=== PATIENT | female | born 1990 | race Caucasian/White ===

== ENCOUNTER → 2021-03-03 10:04 | Day surgery (SDC) | payer BC, SELFPAY ==
[2021-03-03 12:12] VITALS: BP 126/74; PULSE 114; RESP 20; TEMP 36.2; O2SAT 96; BMI 37.3
[2021-03-03 12:29] VITALS: BP 126/74; PULSE 114; RESP 20; TEMP 36.2; O2SAT 96
== END ==
PROVIDERS: Family Provider Registered Nurse; Visit Provider Family Medicine
DX: O36.0990 Maternal care for other rhesus isoimmunization, unspecified trimester, not applicable or unspecified (principal); Z3A.00 Weeks of gestation of pregnancy not specified
CPT/HCPCS: 36415; 36430; 86850; 86900; 90384; 96372

== ENCOUNTER 2021-05-14 12:50 | Outpatient (CLI) | payer BC, SELFPAY ==
[2021-05-14] VITALS (8 sets, daily range): BP systolic 105–118; BP diastolic 55–67; PULSE 90–109; RESP 18; TEMP 36–36.3; BMI 40.6
== END 2021-05-14 14:55 | disposition home or self-care (01) ==
LOC: OPOB 12:54 → OBGYN 12:54
PROVIDERS: PCP Family Medicine; Visit Provider Family Medicine
DX: O26.899 Other specified pregnancy related conditions, unspecified trimester (principal); Z3A.00 Weeks of gestation of pregnancy not specified; R10.9 Unspecified abdominal pain
CPT/HCPCS: 59025; 99211

== ENCOUNTER 2021-05-22 10:26 | Inpatient (IN) | payer BC, SELFPAY ==
[2021-05-22] VITALS (58 sets, daily range): BP systolic 88–127; BP diastolic 51–86; PULSE 64–115; RESP 15–18; TEMP 36.2–36.8; O2SAT 96–100; BMI 41.1
--- NOTE | 2021-05-22 10:09 | PM.HP ---
Providers/Chief Complaint Primary Care Provider: Reyes Banegas MD Chief Complaint: FULL TERM , INDUCTION History of Present Illness Rachael Ayala is a 31 year old at 40 weeks gestation by LMP consistent with 9-week ultrasound. Her is complicated by celiac disease, Rh-. The patient presents to L&D secondary to a planned induction of labor for postdates. The patient feels well at this time. She denies any chest pains, cough, shortness of breath, fever, nausea, vomiting, diarrhea, leakage of fluid, vaginal bleeding. Medications/Allergies Home Medications Medication Instructions Recorded Confirmed Last Taken Type no.144-folic acid 1 tab PO DAILY 03/03/21 03/03/21 Unknown History [] Allergies Allergy/AdvReac Type Severity Reaction Status Date / Time No Known Allergies Allergy Verified 08/06/20 15:43 PFSH Acute PFSH: Social History Smoking and tobacco status: never smoked Current occupation: [employer] Physical Exam Narrative: EXAM NARRATIVE: General: Alert and oriented x3 Eyes: Pupils equal round and reactive to light and accommodation Mouth: Mucous membranes moist, pharynx non-erythematous Cardiac: Regular rate and rhythm without murmurs Lungs: Clear to auscultation bilaterally without wheezes, crackles or rhonchi Abdomen: Soft, non-tender, fundus consistent with gestational age Cervix: 3 to 4 cm/50/-3/posterior/vertex Extremities: Trace edema in the bilateral lower extremities A&P Additional A&P Information The patient is doing well at this time. We will proceed with induction of labor. The patient is GBS negative. We will start the patient on IV Pitocin. The patient may have a laboring epidural when requested. All questions were answered. The patient and her are in agreement with the current plan of care. Attestations Medical Necessity Statement*: The patient will be here for greater than 2 midnights due to routine intrapartum and management of labor and delivery. Coding Level of Care Code Acute Manager Marketing Communication for Niya Giang
[2021-05-22] MEDS: dextrose 5%-lactated ringers 1,000 ML 125 ML IV ×2 (11:15→17:15)
[2021-05-22] MEDS: oxytocin 30 UNIT/500 ML BAG IV (11:16)
[2021-05-22 11:41] LABS: Basophils % 0.2 %; Eosinophils # 0.1 10^3/uL (0.0-0.8); Eosinophils % 0.6 %; Hematocrit 32.6 % (37.0-47.0); Hemoglobin 9.9 g/dL (11.5-15.3); Lymphocytes # 1.9 10^3/uL (0.8-4.8); Lymphocytes % 20.3 %; Mean Corpuscular HGB Conc 30.4 g/dL (30.0-36.0); Mean Corpuscular Hemoglobin 22.7 pg (28.0-34.0); Mean Corpuscular Volume 74.8 fl (81-99); Mean Platelet Volume 11.5 fL (7.4-10.4); Monocytes # 0.6 10^3/uL (0.2-0.9); Monocytes % 6.6 %; Neutrophils # 6.84 10^3/uL (1.8-7.7); Neutrophils % 71.5 %; Nucleated Red Blood Cells % 0 %; Platelet Count 243 10^3/cmm (130-400); Red Blood Count 4.36 10^6/uL (4.1-5.3); White Blood Count 9.6 10^3/uL (4.0-10.0)
[2021-05-22] MEDS: lactated ringers 1,000 ML 999 ML IV ×3 (14:36→17:30)
--- NOTE | 2021-05-22 16:07 | P.ANESASSM_ITS ---
Pre-Anesthetic Assessment Pre-Anesthetic Assessment: Height/Weight: Height 1.57 m Weight 102.058 kg Temp Pulse Resp BP Pulse Ox 97.2 F L 92 18 106/61 98 05/22/21 15:37 05/22/21 16:00 05/22/21 10:26 05/22/21 16:00 05/22/21 15:55 Preop Diagnosis: IUP Was Beta Delma taken within 24 hours: N/A Was Clonidine taken within 24 hours: N/A Social: Social History: No alcohol and No tobacco Exam: Pre-Anes Outpt Exam: alert, oriented x 3, clear to auscultation bilaterally and regular rate & rhythm Airway: Submandibular: WNL Cervical ROM: WNL MP: 2 Dentition: Full History/ROS: No significant history except as noted GI: Comments: Celiac dz Metabolic: Metabolic: Morbid obesity Anesthetic Plan: ASA status: 2 Anesthesia: Regional (specify below) (Labor epidural) Risk of > 500 ml blood loss (7ml/kg in children): No Meds/Allergies Current Medications: Current Medications Generic Name Dose Route Start Last Admin Trade Name Freq PRN Reason Stop Dose Admin Dextrose/Lactated Ringer's 1,000 mls @ 125 m ls/hr 05/22/21 10:30 05/22/21 14:36 Dextrose 5%-Lact ated Ringers IV Infused .Q8H GLORIA Infusion Oxytocin 30 unit in 500 ml s @ 1 mls/hr 05/22/21 10:30 05/22/21 14:15 Pitocin IV 20 milliunit/min .Q24H GLORIA 20 mls/hr Titration Protocol 1 MILLIUNIT/MIN Ropivacaine 200 mg in 100 mls @ 13 mls/hr 05/22/21 14:30 05/22/21 15:32 Naropin Premix EPIDURAL 13 mls/hr .Q7H42M GLORIA Administration Lactated Ringer's 1,000 mls @ 999 m ls/hr 05/22/21 14:30 05/22/21 15:32 Lactated Ringers IV 999 mls/hr .Q1H1M PRN Administration See label comment s PFSH Anesthesia PFSH: Social History Smoking and tobacco status: never smoked Current occupation: [employer] Female Reproductive History: : 5 Data Anesthesia CBC & Chem 7: 05/22/21 10:30 Other Labs: Laboratory Results - last 48 hr 05/22/21 10:30 WBC 9.6 RBC 4.36 Hgb 9.9 L Hct 32.6 L MCV 74.8 L MCH 22.7 L MCHC 30.4 RDW 17.0 H Plt Count 243 MPV 11.5 H Neut % (Auto) 71.5 Lymph % (Auto) 20.3 Glascock % (Auto) 6.6 Eos % (Auto) 0.6 Baso % (Auto) 0.2 Neut # (Auto) 6.84 Lymph # (Auto) 1.9 Glascock # (Auto) 0.6 Eos # (Auto) 0.1 Baso # (Auto) 0.0 Nucleated RBC % (auto) 0 Nucleated RBCs # 0.0 Cardiac Studies: No Data to Display
--- NOTE | 2021-05-22 16:08 | ANES.PROC ---
Anesthesia Procedures Procedure/Date: 05/22/21 Epidural: Time Out Performed: Yes Consents Signed: Procedure Consent Consent: requested by attending/covering physician, from patient, risks and benefits reviewed and patient agrees to proceed Lumbar Level: L3-L4 Epidural position: sitting Epidural procedure: sterile prep of area, 1% lidocaine to numb the area, 18 g needle, neg for paresthesia, test dose given, placed PCEA, no systemic response, sterile dressing applied, L.U.D. no apparent complications and 0.2% Ropiavacaine @ mls/hr Additional Comments: IMELDA at 4cm, Cath at 9cm. Bolused 5mls of 2% llido.
[2021-05-22] MEDS: ondansetron 2 mg/ML SDV 2 mL 4 MG IVP (17:19)
--- NOTE | 2021-05-22 17:34 | PC.NURSE ---
DR MEZA SPOKE WITH PT, VERBAL CONSENT FROM PT TO DR MEZA.
--- NOTE | 2021-05-22 18:23 | XRR_ITS ---
PROCEDURE INFORMATION: Exam: XR Abdomen Exam date and time: 05/22/2021 6:23 PM Age: 31 years old Clinical indication: Screening exam; Post surgical status; Instrument count TECHNIQUE: Imaging protocol: XR of the abdomen. Views: Frontal supine view of the abdomen. 1 View. COMPARISON: No relevant prior studies available. FINDINGS: Tubes, catheters and devices: Apparent enteric tube tip over the upper abdomen. Gastrointestinal tract: Normal. No bowel dilation. Bones/joints: Unremarkable. XR/XR abdomen 1V* [id number] IMPRESSION: 1. Negative for findings to indicate retained surgical instrument as clinically questioned. 2. Apparent enteric tube tip over the upper abdomen.
[2021-05-22] MEDS: clindamycin 900 MG/50 ML PREMIX 100 MG IV (18:49)
--- NOTE | 2021-05-22 18:51 | ANE.PACU2 ---
Inpatient post-anesthesia follow up: Airway intact: Yes Vital signs: Temperature 98.0 F Pulse Rate 91 Respiratory Rate 17 Blood Pressure 99/51 Pulse Oximetry 98 Oxygen Delivery Me thod Room Air Oxygen Flow Rate Fraction of Inspir ed Oxygen Hydration adequate: Yes Nausea and vomiting: No Pain level: 1 Additional Comments: Sedated, recovering in OB OR 2 after stat C/S with epidural, patient very anxious with SOB and sedated heavily after baby out. Epidural pulled with tip intact.
--- NOTE | 2021-05-22 19:03 | P.OP_ITS ---
Operative Report Date of procedure: May 22, 2021 Pre-op Diagnosis: IUP Pre-op Diagnosis: 1. Intrauterine at 40.0 weeks gestation 2. Rh- status 3. Celiac disease 4. Prolapsed umbilical cord Post-op Diagnosis: 1. Intrauterine status post primary low transverse section at 40.0 weeks gestation 2. Rh- status 3. Celiac disease 4. Prolapsed umbilical cord 5. Delivery of healthy infant female weighing 10 pounds 0 ounces with Apgars of 8 and 9 6. Nuchal cord x1 Post-op Findings: 1. Healthy infant female weighing 10 pounds 0 ounces with Apgars of 8 and 9 2. Intact placenta with central umbilical cord insertion site Procedure Done: Primary low transverse . Specimens removed/disposition: Placenta discarded. Pathology: none sent Surgeon: Reyes Banegas Anesthesia: Epidural (Converted to spinal block) Estimated blood loss (mL): 450 Complications: None Condition: stable Disposition: floor Brief History: Rachael Ayala is a 31 year old G5 now P4 status post primary low transverse section at 40 weeks gestation by LMP consistent with 9-week ultrasound. Her was complicated by celiac disease, Rh- and is now prolapsed cord status post emergent section. The patient presented to labor and delivery triage on the morning of 05/22/2021 for induction of labor secondary to postdates. She was 3.5 cm dilated upon presentation. She was started on IV Pitocin and got to 20 units and was gray every 3 to 4 minutes. She had a category 1 heart tone tracing. She received a laboring epidural. The patient was comfortable with this. By the afternoon, she had changed to 5 cm dilation. The head was well applied to the cervix with contractions and AROM was performed by myself at 1651 on 05/22/2021. A small amount of clear fluid was noted. heart tone tracing continued to be category 1. After approximately 30 minutes the patient began to feel nauseous, so she was given Zofran by the nurse and the nurse checked her. Upon checking for dilation, a large amount of fluid came out and the 's hand was the leading body part. It grabbed the nurses finger. She then noted that with the large amount of fluid that came out, a nuchal cord was present. For this reason a stat section was called. I was called at 1724 on 05/22/2021. The patient was taken back to the operating room. She was in the operating room by 1729. Procedure: After informed verbal consent was obtained, the patient was taken to the operating room emergently and the patient was prepped using Betadine and draped in a normal sterile fashion in the dorsal supine position. The patient's epidural was dosed by anesthesia and adequate anesthesia was confirmed. At 1735 on 05/22/2021, a Pfannenstiel skin incision was made and carried through to the underlying layer of fascia using a scalpel. The fascial incision was then extended laterally using curved Mayos. The fascia was then grasped with Elmira clamps and the underlying rectus muscles were dissected off taking care to avoid injury to the underlying tissues. The peritoneum was entered bluntly with one digit. It was then bluntly. The bladder blade was placed and the vesicouterine peritoneum was well below the lower uterine segment of the uterus. The uterine incision was made in the lower uterine segment in a transverse fashion with the scalpel at 1737. The amniotic membrane was entered bluntly and a small amount of clear fluid was noted. The infant's head delivered atraumatically without difficulty at 1738. There was a nuchal cord. The mouth and nose were suctioned. The rest of the delivered without difficulty. The was crying immediately upon delivery. The cord was clamped and cut and the was handed to the awaiting pediatric nurses. The placenta was then manually expressed. The uterus was then exteriorized from the abdomen and a wet lap was used to clear the uterus of clots and debris. The bladder blade was reinserted and the uterine incision was closed using 0 Vicryl in a running locking fashion. A second layer of 0 chromic suture was used in the same manner. Excellent hemostasis was obtained. Next the posterior cul-de-sac was inspected and was cleared of any blood. The uterus was then placed back into the abdomen. The gutters were cleared of any further clots and debris and the uterine incision was again inspected and hemostasis was noted. The subfascial tissue was inspected for hemostasis and the peritoneum was re-approximated using 2-0 plain in a running fashion. The fascia was then re-approximated using 0 Vicryl in a running fashion. An x-ray was done to confirm that no foreign bodies were left inside since a full count could not be done prior to starting the surgery. This was confirmed. The subcutaneous tissue was inspected for hemostasis. Marty's fascia was then re- approximated using 3-0 plain in a running fashion. Good hemostasis was noted. The subcutaneous tissue was then re-approximated using a subcuticular stitch. The patient tolerated the procedure well and was recovered in stable condition. Estimated blood loss was 450 mL. Urine in the Cunningham catheter was clear. The patient was taken to recovery in good condition.
[2021-05-22] MEDS: morphine 4 mg/mL SDV 1 mL IVP (20:31)
[2021-05-22] MEDS: diphenhydrAMINE 50 mg/mL SDV 1mL 25 MG IVP (22:08)
[2021-05-23] VITALS (7 sets, daily range): BP systolic 90–100; BP diastolic 50–62; PULSE 69–93; RESP 18; TEMP 36.7–36.8; O2SAT 94–97
[2021-05-23] MEDS: ketorolac 30 mg/mL INJ IVP ×2 (00:58→06:49)
[2021-05-23] MEDS: dextrose 5%-lactated ringers 1,000 ML 125 ML IV ×2 (01:30→11:23)
[2021-05-23] MEDS: clindamycin 900 MG/50 ML PREMIX 100 MG IV ×3 (02:57→19:32)
[2021-05-23 06:48] LABS: Hematocrit 29.7 % (37.0-47.0); Hemoglobin 8.9 g/dL (11.5-15.3); Mean Corpuscular Hemoglobin 22.8 pg (28.0-34.0); Mean Platelet Volume 11.8 fL (7.4-10.4); Platelet Count 258 10^3/cmm (130-400); Red Blood Count 3.91 10^6/uL (4.1-5.3); Red Cell Distribution Width 17.1 % (12.1-15.1); White Blood Count 19.1 10^3/uL (4.0-10.0)
[2021-05-23] MEDS: acetaminophen 325 mg Tablet 650 MG PO (09:19)
[2021-05-23] MEDS: prenatal vitamin Capsule 1 CAP PO (09:20)
[2021-05-23] MEDS: docusate sodium 100 mg Capsule PO ×2 (09:20→18:20)
[2021-05-23] MEDS: oxyCODONE-APAP 5-325 mg Tablet PO ×3 (13:55→22:02)
--- NOTE | 2021-05-23 16:44 | P.PN_ITS ---
Subjective Subjective: Interval history: The patient is doing well overall with she is continued to have pain related to her section. The medications are controlling her pain moderately well. She is ambulating, voiding and tolerating food by mouth. Vitals/I&O/Wt Last Vital Signs Temp 98.0 F 05/23/21 03:06 Pulse 77 05/23/21 05:30 Resp 18 05/23/21 13:55 BP 93/58 05/23/21 05:30 Pulse Ox 96 05/23/21 05:30 05/23/21 05/23/21 05/23/21 06:59 14:59 22:59 Intake Total 1050 / 3172.133 1000 / 1000 Output Total 775 / 2325 300 / 300 Balance 275 / 847.133 700 / 700 Weight last 48 hrs Weight 225 lb Physical Exam Narrative: EXAM NARRATIVE: General: Alert and oriented x3 Cardiac: Regular rate and rhythm without murmurs Lungs: Clear to auscultation bilaterally without wheezes, crackles or rhonchi Abdomen: Soft, moderate tenderness diffusely without rebound tenderness. Incision is clean and dry without signs of infection or dehiscence. Extremities: +1 pitting edema in the bilateral lower extremities Urinary Catheter Management^: Cunningham: Cath Placed During This Visit: yes Reason for Continuing Indwelling Catheter: Required Immobilization for Trauma or Surgery or Anesthesia Urinary Catheter Date of Insertion: 05/22/21 Urinary Catheter Time of Insertion: 15:55 Data : 05/23/21 06:26 A&P Additional A&P Information The patient is doing well at this time. We will adjust her pain medications to try and control her pain better. She is ambulating, voiding and passing gas. She is tolerating food by mouth. Overall the patient is showing good signs of improvement. Her hemoglobin is slightly low at 8.9 and we will give her iron by mouth. She did start anemic at 9.9. Routine post care was discussed with the patient. All questions were answered. If she continues to show signs of improvement, we will plan for discharge home tomorrow. Attestations Medical Necessity Statement*: The patient continues need inpatient care after management for section. Her stay will cross 2 midnights. Coding Level of Care Code Acute Line And Frame Poler for Niya Giang
[2021-05-23] MEDS: ibuprofen 800 mg tablet PO ×2 (16:53→23:30)
[2021-05-23] MEDS: diphenhydrAMINE 50 mg/mL SDV 1mL 25 MG IVP (22:04)
[2021-05-24 04:00] VITALS: BP 100/60; PULSE 80; RESP 18; TEMP 36.6
[2021-05-24 06:17] VITALS: RESP 18
[2021-05-24] MEDS: oxyCODONE-APAP 5-325 mg Tablet PO ×2 (06:17→09:59)
--- NOTE | 2021-05-24 09:08 | PM.DCS ---
Discharge Providers Date of Admission: 05/22/21 10:26 Date of Discharge: May 24, 2021 Attending Provider at Admission: Reyes Banegas MD Attending Provider at Discharge: Reyes Banegas MD Primary Care Provider: Reyes Banegas MD Diagnoses at Discharge Other Information Additional DC diagnoses/information: 1. Intrauterine status post primary low transverse section at 40.0 weeks gestation 2. Rh- status 3. Celiac disease 4. Prolapsed umbilical cord 5. Delivery of healthy infant female weighing 10 pounds 0 ounces with Apgars of 8 and 9 6. Nuchal cord x1 Reason for Visit Reason for Visit: FULL TERM , INDUCTION Hospital Course Hospital Course Rachael Ayala is a 31 year old G5 now P4 status post primary low transverse section at 40 weeks gestation by LMP consistent with 9-week ultrasound. Her was complicated by celiac disease, Rh- and now prolapsed cord status post emergent section. The patient presented to labor and delivery triage on the morning of 05/22/2021 for induction of labor secondary to postdates. She was 3.5 cm dilated upon presentation. She was started on IV Pitocin and got to 20 units and was gray every 3 to 4 minutes. She had a category 1 heart tone tracing. She received a laboring epidural. The patient was comfortable with this. By the afternoon, she had changed to 5 cm dilation. The head was well applied to the cervix with contractions and AROM was performed by myself at 1651 on 05/22/2021. A small amount of clear fluid was noted. heart tone tracing continued to be category 1. After approximately 30 minutes the patient began to feel nauseous, so she was given Zofran by the nurse. The nurse checked her to see if she was making significant change. Upon checking for dilation, a large amount of fluid came out and the 's hand was the leading body part. It grabbed the nurses finger. She then noted that with the large amount of fluid that came out, a nuchal cord was present. For this reason a stat section was called. The patient had an emergent primary low transverse section due to the prolapsed cord. No complications were noted during the surgery. The was crying and had good tone upon delivery. The patient did not have significant bleeding with the surgery. The patient has been doing well and her pain has been moderately well controlled. She is ambulating now, voiding, passing gas and tolerating food by mouth. Her bleeding has been decreasing well. I spoke with the patient regarding routine post care. She was advised that she would be a good candidate for a if she decided to become in the future. Overall the patient and her infant are doing well. All questions were answered. The patient and her are in agreement with discharge home at this time. Physical Exam Narrative: EXAM NARRATIVE: General: Alert and oriented x3 Cardiac: Regular rate and rhythm without murmurs Lungs: Clear to auscultation bilaterally without wheezes, crackles or rhonchi Abdomen: Soft, moderate tenderness diffusely without rebound tenderness. Incision is clean and dry without signs of infection or dehiscence. Fundus is firm and two cm below the umbilicus. Extremities: +1 pitting edema in the bilateral lower extremities Urinary Catheter Management^: Cunningham: Cath Placed During This Visit: yes Reason for Continuing Indwelling Catheter: Required Immobilization for Trauma or Surgery or Anesthesia Urinary Catheter Date of Insertion: 05/22/21 Urinary Catheter Time of Insertion: 15:55 Discharge Data Data Completed and Pending: Completed Studies During Hospitalization Category Date Time Status XR abdomen 1V* 74 018 Routine Exams 05/22/21 18:23 Completed Labs from last 24 hours 05/23/21 10:30 Blood Type A Negative Rho(D) Type Negative Antibody Screen Negative Vitals: Last Vital Signs Temp 97.9 F 05/24/21 04:00 Pulse 80 05/24/21 04:00 Resp 18 05/24/21 06:17 BP 100/60 05/24/21 04:00 Pulse Ox 94 05/23/21 21:00 Discharge Plan Discharge Patient Disposition: Home Condition: Good Prescriptions: New oxycodone-acetaminophen 5-325 mg Tablet 1 - 2 tab PO Q6H PRN (Reason: Moderate To Severe Pain) Qty: 30 RF: 0 ferrous sulfate 325 mg (65 mg iron) Tablet,Delayed Release (Dr/Ec) 325 mg PO BIDWM Qty: 60 RF: 0 ibuprofen 800 mg Tablet 800 mg PO TID Qty: 60 RF: 0 Continued 400 mcg Tablet,Chewable 1 tab PO DAILY RF: 0 Discharge Orders: Discharge Order (Routine); Ordered 05/24/21 Ordered By: Reyes Banegas Referrals: Reyes Banegas MD [Primary Care Provider] - 05/26/21 Discharge Diet: Usual diet Discharge Activity: Limit activity as instructed Patient Instructions: Opioid Safety Activity Restrictions/Additional Instructions: Do not lift anything heavier than your in the car seat for the first 3 weeks, then gradually increase. Nothing per vagina for 6 weeks. If you have any concern for infection in your incision site, please seek immediate medical attention. Discharge Attestations Time Spent in Discharge Care*: greater than 30 min Quality Metrics Clinical Quality Measures During this hospital stay, did patient experience: None Coding Level of Care Code Acute Chg LONNY DC note
[2021-05-24 09:59] VITALS: RESP 15
[2021-05-24] MEDS: docusate sodium 100 mg Capsule PO (09:59)
[2021-05-24] MEDS: prenatal vitamin Capsule 1 CAP PO (09:59)
[2021-05-24] MEDS: ibuprofen 800 mg tablet PO (10:00)
[2021-05-24 11:00] VITALS: BP 112/52; PULSE 90; RESP 15; TEMP 36.7; O2SAT 97
== END 2021-05-24 12:00 | disposition home or self-care (01) | DRG 787 ==
LOC: OPOB 05-23 06:57 → OBGYN 05-23 06:57
PROVIDERS: Admitting Provider Family Medicine; PCP Family Medicine; Visit Provider Family Medicine
PROC: 10D00Z1 Extraction of Products of Conception, Low, Open Approach (ICD-10-PCS; CPT 59514; principal; 2021-05-22 17:30)
DX: O48.0 Post-term pregnancy (principal); O36.0930 Maternal care for other rhesus isoimmunization, third trimester, not applicable or unspecified; O69.2XX0 Labor and delivery complicated by other cord entanglement, with compression, not applicable or unspecified; Z3A.40 40 weeks gestation of pregnancy; Z37.0 Single live birth
CPT/HCPCS: 36415; 51702; 59025; 59409; 74018; 85025; 85027; 86850; 86900; 96374; 96375; J0690; J1100; J1200; J1885; J2250; J2270; J2274; J2405; J2704; J2795; J3490; J7030

== ENCOUNTER → 2021-09-30 11:48 | Outpatient (BNVA) | payer OTHER, SELFPAY | PROVIDERS: PCP Family Medicine; Visit Provider Registered Nurse | DX: M25.50 Pain in unspecified joint (principal) | CPT/HCPCS: 86038; 86140 ==

== ENCOUNTER → 2021-10-02 15:15 | Outpatient (BNVA) | payer OTHER, SELFPAY | PROVIDERS: PCP Family Medicine; Visit Provider Registered Nurse | DX: M25.50 Pain in unspecified joint (principal); K90.0 Celiac disease; R76.8 Other specified abnormal immunological findings in serum | CPT/HCPCS: 85651; 86160; 86162; 86235; 86255; 86376; 86431 ==

== ENCOUNTER 2021-10-06 16:06 | Outpatient (CLI) | payer OTHER, SELFPAY ==
--- NOTE | 2021-10-06 16:16 | MR_ITS ---
WS: [id number] MRI OF THE ABDOMEN WITHOUT GADOLINIUM ENHANCEMENT. INDICATION: Right lower quadrant pain TECHNIQUE: Axial T1, axial T2, coronal STIR, axial 2-D fiesta, dual echo axial PD FINDINGS: Limited MRI of the right lower quadrant. Palpable marker in the right lower quadrant abdominal wall. Normal underlying subcutaneous soft tiss ues. Small amount of benign fat necrosis deep to the palpable marker in the subcutaneous soft tissues . Fat-containing umbilical hernia. No herniated bowel. Partially visualized cecum and appendix in the right lower quadrant appear normal. No fluid in the right lower quadrant. Partially visualized dista l abdominal aorta appears normal. No other suspicious findings. MR/MR abdomen wo con [id number] IMPRESSION: 1. Palpable marker in the right lower quadrant. Normal underlying subcutaneous fat deep to the palpable marker. Small amount of fat necrosis deep to the palp able marker. 2. Partially evaluated cecum and appendix right lower quadrant appear normal. If persistent pain, contrast-enhanced CT of the abdomen and pelvis can be obtai wilver for better anatomic detail. 3. No fluid in the right lower quadrant. 4. No other suspicious findings.
== END 2021-10-06 16:07 | disposition home or self-care (01) ==
LOC: RADSHAW 16:12
PROVIDERS: PCP Registered Nurse; Visit Provider Registered Nurse
DX: R19.03 Right lower quadrant abdominal swelling, mass and lump (principal)
CPT/HCPCS: 74181

== ENCOUNTER → 2021-10-27 08:23 | Outpatient (BNVA) | payer OTHER, SELFPAY | PROVIDERS: PCP Registered Nurse; Visit Provider Surgery | DX: Z20.822 Contact with and (suspected) exposure to COVID-19 (principal) | CPT/HCPCS: 87635 ==

== ENCOUNTER 2021-10-30 07:06 | Day surgery (SDC) | payer OTHER, SELFPAY ==
[2021-10-29 11:29] VITALS: BMI 32.1
[2021-10-30 07:30] VITALS: BP 112/69; PULSE 65; RESP 18; TEMP 36.3; O2SAT 99
--- NOTE | 2021-10-30 07:41 | W.PM.OPSFHP ---
Same Day Surgery H&P Indication for Procedure/HPI DATE OF PROCEDURE: October 30, 2021 CHIEF COMPLAINT/INDICATIONFOR SURGICAL PROCEDURE: abdominal wall mass PREOP DIAGNOSIS: Abdominal wall mass PLANNED PROCEDURE: Operation Date: 10/30/21 08:25 Proposed Procedures p Excision of Abominal Wall Mass 06101 R22.2(Not Applicable) - Ward Mahajan MD Medications/Allergies* Home Medications Medication Instructions Recorded Confirmed Type No Known Home Medications 10/29/21 10/29/21 History Allergies/Adverse Reactions Allergy/AdvReac Type Severity Reaction Status Date / Time gluten Allergy ADR-Gastrointestinal Verified 10/29/21 11:50 Upset Pertinent History/Comorbid Conditions* Surgical History (Updated 10/20/21 @ 08:24 by Ward Mahajan MD) History of x1 Hx of oral surgery Social History Current occupation: [employer] Pertinent Exam Findings alert, oriented x 3, regular rate & rhythm and operative site marked Recommendations Surgery/Procedure today Coding Level of Care Code Acute Gold Wheel Blocker And Polisher for Niya Giang
[2021-10-30] MEDS: sodium chloride 0.9% 1,000 ML 30 ML IV (07:48)
[2021-10-30 07:53] LABS: OR HCG Qualitative Urine Negative (Negative)
--- NOTE | 2021-10-30 07:56 | ANES.PREANE2 ---
Pre-Anesthetic Assessment Height/Weight: Height 1.57 m Weight 79.832 kg Temp Pulse Resp BP Pulse Ox 97.4 F L 65 18 112/69 99 10/30/21 07:30 10/30/21 07:30 10/30/21 07:30 10/30/21 07:30 10/30/21 07:30 Preop Diagnosis: Abdominal wall mass Operation Date: 10/30/21 08:25 Proposed Procedures p Excision of Abominal Wall Mass 18244 R22.2(Not Applicable) - Ward Mahajan MD Familial anesthetic complications: None Was Beta Delma taken within 24 hours: N/A Was Clonidine taken within 24 hours: N/A Last intake: Intake Last Liquid Date 10/29/21 Last Liquid Time 21:00 Last Solid Date 10/29/21 Last Solid Time 21:00 Social No alcohol and No tobacco Exam alert, oriented x 3, clear to auscultation bilaterally and regular rate & rhythm Airway Submandibular: within normal limits Cervical ROM: within normal limits Mallampati: Class I Dentition: full History/ROS No significant history except as noted Pulmonary None reported CV/HEM None reported METS > 4 None reported Hepatic None reported GI None reported Metabolic None reported Musc/skel Osteoarthritis/DJD Abdominal mass Neuropsych None reported Anesthetic Plan ASA status: 2 (31 year old with hx of celiac, obesity, join pain) Anesthesia: Anesthesia Evaluation and General Other: We discussed risk and benefits of general anesthesia including PONV, sore throat (sometimes severe), corneal abrasion, positioning and peripheral nerve injuries, life threatening allergic reaction, post operative ICU admission requiring prolonged intubation, stroke, heart attack, , and rare incidences of recall. Patient consents to proceed with general anesthesia. Risk of > 500 ml blood loss (7ml/kg in children): No Medications/Allergies Home Medications Medication Instructions Recorded Confirmed Last Taken Type hydrocodone 5 mg-acetaminophen 325 1 tab PO Q6H PRN #20 tab 10/30/21 Unknown Rx mg tablet Allergies Allergy/AdvReac Type Severity Reaction Status Date / Time gluten Allergy ADR-Gastrointestinal Verified 10/29/21 11:50 Upset PFSH Anesthesia Surgical History H/O excision of mass (10/30/21) abdominal wall History of x1 Hx of oral surgery Social History Current occupation: [employer] Data Anesthesia Cardiac Studies: No Data to Display
[2021-10-30] MEDS: lidocaine 1% INJ 20 mL INJECTION (08:16)
--- NOTE | 2021-10-30 08:20 | PM.OP ---
Operative Report Date of procedure: October 30, 2021 Pre-op diagnosis: Abdominal wall mass Post-op diagnosis: 5 x 4 cm subcutaneous mass right lower abdomen Procedure done: Excision of abdominal wall mass measuring 5 x 4 cm Specimens removed/disposition: Abdominal wall mass Surgeon: Ward Mahajan Anesthesia: MAC Condition: stable Disposition: PACU Procedure: The patient was taken to the operating room and placed under MAC after IV antibiotic had been administered. The palpable mass in the right lower abdomen had been previously marked in the preop area and the area around it was prepped and draped in a sterile manner. 1% lidocaine with 0.5% Marcaine was infiltrated around the mass. Using a 15 blade a 4 cm incision was made, subcutaneous tissue was divided using electrocautery and the mass was dissected free from the surrounding soft subcutaneous tissue and underlying aponeurotic fascia. Hemostasis was ensured and the subcutaneous tissues were approximated using interrupted 3-0 Vicryl suture and skin was closed using running subcuticular 4-0 Monocryl suture and Dermabond. The patient was transferred to recovery room in stable condition.
[2021-10-30 08:31] VITALS: BP 94/60; PULSE 66; RESP 16; TEMP 36.2; O2SAT 98
[2021-10-30 08:35] VITALS: BP 90/66; PULSE 64; RESP 18; TEMP 36.2; O2SAT 97
[2021-10-30 09:05] VITALS: BP 93/62; PULSE 62; RESP 17; O2SAT 99
[2021-10-30 09:34] VITALS: BP 96/64; PULSE 68; RESP 17; TEMP 36.3; O2SAT 98
--- NOTE | 2021-10-30 10:07 | ANE.PACU2 ---
Inpatient post-anesthesia follow up: Airway intact: Yes Vital signs: Temperature 97.4 F Pulse Rate 68 Respiratory Rate 17 Blood Pressure 96/64 Pulse Oximetry 98 Oxygen Delivery Me thod Room Air Oxygen Flow Rate Fraction of Inspir ed Oxygen Hydration adequate: Yes Nausea and vomiting: No Pain level: 1 Mental status: Baseline
== END 2021-10-30 10:24 | disposition home or self-care (01) ==
PROVIDERS: Anesthesiology; PCP Registered Nurse; Visit Provider Surgery
PROC: (CPT 22903; principal; 2021-10-30 08:15)
DX: R22.2 Localized swelling, mass and lump, trunk (principal)
CPT/HCPCS: 22903; 81025; 84703; 88309; J0690; J2250; J3010; J3490; J7030

== ENCOUNTER → 2022-04-27 14:32 | Outpatient (BNVA) | payer OTHER, SELFPAY | PROVIDERS: PCP Registered Nurse; Visit Provider Family Medicine | DX: R10.31 Right lower quadrant pain (principal); Z98.890 Other specified postprocedural states; R76.8 Other specified abnormal immunological findings in serum; Z67.91 Unspecified blood type, Rh negative; K90.0 Celiac disease; E66.9 Obesity, unspecified; Z76.89 Persons encountering health services in other specified circumstances; M25.531 Pain in right wrist | CPT/HCPCS: 80053; 85025; 86141 ==

== ENCOUNTER → 2022-10-08 15:46 | Outpatient (BNVA) | payer OTHER, SELFPAY | PROVIDERS: PCP Registered Nurse; Visit Provider Registered Nurse | DX: E66.9 Obesity, unspecified (principal); Z76.89 Persons encountering health services in other specified circumstances | CPT/HCPCS: 80053; 82306; 82607; 84443; 85025 ==

== ENCOUNTER 2022-11-07 23:42 | Emergency (ER) | payer OTHER, SELFPAY ==
[2022-11-07 23:47] VITALS: BP 121/79; PULSE 76; RESP 17; TEMP 37; O2SAT 99; BMI 32.9
--- NOTE | 2022-11-08 00:25 | USR_ITS ---
PROCEDURE INFORMATION: Exam: US Abdomen, Limited; Right Upper Quadrant Exam date and time: 11/08/2022 12:36 AM Age: 32 years old Clinical indication: Abdominal pain; Generalized; Additional info: Ruq pain TECHNIQUE: Imaging protocol: Real time ultrasound of the abdomen with image documentation. Limited exam focused on the right upper quadrant. COMPARISON: MR abdomen wo con [id number] 10/06/2021 4:36 PM FINDINGS: Liver: Liver is enlarged measuring 18.8 cm with diffusely increased echogenicity. Gallbladder: Gallbladder appears partly contracted with normal wall thickness. The sonographic Storey's sign is negative. No gallstones are seen. Biliary ducts: Normal. No stones. No dilation. Pancreas: Visualized pancreas is unremarkable. Right kidney: Normal. No mass. No hydronephrosis. US/US gall bladder [id number] IMPRESSION: 1. Mild hepatomegaly with fatty infiltration of the liver. 2. No acute findings.
--- NOTE | 2022-11-08 00:25 | XRR_ITS ---
PROCEDURE INFORMATION: Exam: XR Chest Exam date and time: 11/08/2022 12:56 AM Age: 32 years old Clinical indication: Pain; Chest pressure; Additional info: Cp TECHNIQUE: Imaging protocol: Radiologic exam of the chest. Views: 1 view. COMPARISON: MR abdomen wo con [id number] 10/06/2021 4:36 PM FINDINGS: Lungs: Unremarkable. No consolidation. Pleural spaces: Unremarkable. No pleural effusion. No pneumothorax. Heart/Mediastinum: Unremarkable. No cardiomegaly. Bones/joints: Unremarkable. XR/XR chest 1V portable [id number] IMPRESSION: No acute findings.
[2022-11-08 00:31] LABS: Basophils % 0.3 %; Eosinophils # 0.1 10^3/uL (0.0-0.8); Eosinophils % 1.5 %; Hematocrit 42.7 % (37.0-47.0); Hemoglobin 13.7 g/dL (11.5-15.3); Lymphocytes % 25.5 %; Mean Corpuscular HGB Conc 32.1 g/dL (30.0-36.0); Mean Corpuscular Hemoglobin 26.9 pg (28.0-34.0); Mean Corpuscular Volume 83.7 fl (81-99); Mean Platelet Volume 10.8 fL (7.4-10.4); Monocytes # 0.7 10^3/uL (0.2-0.9); Monocytes % 8.6 %; Neutrophils % 63.8 %; Nucleated Red Blood Cells % 0 %; Platelet Count 286 10^3/cmm (130-400); White Blood Count 7.8 10^3/uL (4.0-10.0)
[2022-11-08 00:41] LABS: D Dimer <= 0.27 ug/mIFEU (0-0.59)
[2022-11-08 00:46] LABS: Troponin(5th) Baseline 6 ng/L (0-10)
[2022-11-08 00:55] LABS: Alanine Aminotransferase 12 U/L (0-33); Albumin Level 4.5 g/dL (3.5-5.2); Alkaline Phosphatase 85 U/L (35-105); Aspartate Amino Transferase 13 U/L (0-32); Blood Urea Nitrogen 10 mg/dL (6-20); Carbon Dioxide 24 mmol/L (22-29); Chloride 102 mmol/L (98-107); Globulin 2.3 g/dL (1.3-4.6); Glomerular Filtration Rate 143.9 mL/min (90-130); Glucose 88 mg/dL (65-115); Lipase 28 U/L (13-60); NT Pro B Type Natriuretic Pept 51 pg/mL (0-125); Osmolality Calculated 286 mOsm/kg (285-295); Sodium 139 mmol/L (136-145); Total Bilirubin 0.2 mg/dL (0.15-1.2); Total Protein 6.8 g/dL (6.6-8.7)
[2022-11-08 00:56] VITALS: BP 113/70; PULSE 83; RESP 17; O2SAT 96
[2022-11-08] MEDS: lidocaine 2% viscous 15 ML, aluminum-mag hydrox-simethicon 30 ML, sucralfate oral liq 1 GM PO (02:24)
[2022-11-08 02:30] VITALS: BP 117/70; PULSE 69; RESP 17; O2SAT 93
--- NOTE | 2022-11-08 05:38 | W.ED.CHESTPA ---
HPI - Chest Pain General: Chief Complaint: Chest Pain Stated Complaint: CHEST PAIN Time Seen by Provider: 11/08/22 00:01 Source: patient History of Present Illness: 32-year-old female who was lying down, and complained of sudden epigastric and chest discomfort. It radiated to her back. She was mildly short of breath. Pain is mostly gone now, although she can still feel a bit of discomfort. She denies fever, cough, vomiting. She has been nauseated. She complains of epigastric and right upper quadrant pain on and off for the past couple of weeks. He has an ultrasound of her gallbladder scheduled for early November. MD complaint: chest pain Pertinent past history: other Onset (ago): hour(s) Timing of current episode: constant and still present (significantly improved) Prior episodes: Yes Onset: during rest Pain location: substernal and epigastric Pain radiation: none Relieving factors: nothing Exacerbating factors: nothing Associated symptoms: Reports abdominal pain, dyspnea and nausea; Deny diaphoresis, fever(s), leg edema, palpitations or vomiting Review of Systems Const: Denies: fever(s) or diaphoresis ENMT: Denies: throat pain Card: Reports: chest pain; Denies: palpitations Resp: Reports: dyspnea; Denies: productive cough or non-productive cough GI: Reports: abdominal pain and nausea; Denies: vomiting Musc: Denies: neck pain PFSH ED PFSH: Surgical History H/O excision of mass (10/30/21) abdominal wall History of x1 Hx of oral surgery Social History Current occupation: [employer] Physical Exam Const: COMMON NORMALS: no acute distress GENERAL APPEARANCE: cooperative; not ill appearing and not frail appearing HENMT: COMMON NORMALS: normocephalic, atraumatic and Normal external nose present HEAD & SCALP: normocephalic and atraumatic FACE & SINUS: normal facial exam and face symmetric NOSE: Normal external nose present Eye: COMMON NORMALS: Equal, round and reactive pupils present and EOMs intact bilaterally PUPIL: Yes Equal, round and reactive pupils present Neck/C-Spine: GENERAL: Yes trachea midline Chest: CHEST: Yes Symmetrical chest wall rise Resp: COMMON NORMALS: normal respiratory effort, No retractions, No use of accessory muscles and clear to auscultation bilaterally AUSCULTATION: clear to auscultation bilaterally Cardio: COMMON NORMALS: regular rate and regular rhythm RATE: regular rate RHYTHM: regular rhythm GI: COMMON NORMALS: Normal to inspection, nondistended, normoactive bowel sounds present PALPATION: Yes Tenderness to palpation present (GI) (epigastric) Details: RUQ Extremity: COMMON NORMALS: no pedal edema Neuro: BRIANNA COMA SCALE: document GCS findings [place] coma scale eye opening: Spontaneous [place] coma scale verbal response: Orientated Brianna coma scale motor response: Obey commands [place] coma scale total score: 15 SENSORY EXAM: Yes extremities (intact) Psych: COMMON NORMALS: speech normal SPEECH: Yes normal speech Skin: COMMON NORMALS: no rashes or lesions noted GENERAL SKIN EXAM: no rashes or lesions noted Course Vital Signs: Vital signs: Vital Signs Temperature 98.6 F 11/07/22 23:47 Pulse Rate 69 11/08/22 02:30 Respiratory Rate 17 11/08/22 02:30 Blood Pressure 117/70 11/08/22 02:30 Pulse Oximetry 93 11/08/22 02:30 Oxygen Delivery Me thod 11/08/22 02:30 MDM - Chest Pain Medical Decision Making 32 year old female with chest discomfort that has improved significantly on its own. She is tender in her right upper quadrant and epigastrium. Ekg shows a normal sinus rhythm with normal axis and intervals. No St wave changes. Troponin is 6. White blood cell count 7.8. Chest X-ray is negative. D dimer is normal. Gallbladder ultrasound reveals no acute findings of the gallbladder, but some fatty infiltration of the liver. She was given a GI cocktail here, and prevacid for home as this is the most likely cause. Close out patient follow up, to return if worsening. Lab Data 11/08/22 00:12 11/08/22 00:12 Radiology Impressions Chest X-Ray 11/08/22 00:25 IMPRESSION: No acute findings. Gallbladder Ultrasound 11/08/22 00:25 IMPRESSION: 1. Mild hepatomegaly with fatty infiltration of the liver. 2. No acute findings. Laboratory Results WBC 7.8 10^3/uL (4.0-10.0) 11/08/22 00:12 RBC 5.10 10^6/uL (4.1-5.3) 11/08/22 00:12 Hgb 13.7 g/dL (11.5-15.3) 11/08/22 00:12 Hct 42.7 % (37.0-47.0) 11/08/22 00:12 MCV 83.7 fl (81-99) 11/08/22 00:12 MCH 26.9 pg (28.0-34.0) L 11/08/22 00:12 MCHC 32.1 g/dL (30.0-36.0) 11/08/22 00:12 RDW 13.0 % (12.1-15.1) 11/08/22 00:12 Plt Count 286 10^3/cmm (130-400) 11/08/22 00:12 MPV 10.8 fL (7.4-10.4) H 11/08/22 00:12 Neut % (Auto) 63.8 % 11/08/22 00:12 Lymph % (Auto) 25.5 % 11/08/22 00:12 [place] % (Auto) 8.6 % 11/08/22 00:12 Eos % (Auto) 1.5 % 11/08/22 00:12 Baso % (Auto) 0.3 % 11/08/22 00:12 Neut # (Auto) 5.00 10^3/uL (1.8-7.7) 11/08/22 00:12 Lymph # (Auto) 2.0 10^3/uL (0.8-4.8) 11/08/22 00:12 [place] # (Auto) 0.7 10^3/uL (0.2-0.9) 11/08/22 00:12 Eos # (Auto) 0.1 10^3/uL (0.0-0.8) 11/08/22 00:12 Baso # (Auto) 0.0 10^3/uL (0.0-0.1) 11/08/22 00:12 Nucleated RBC % (auto) 0 % 11/08/22 00:12 Nucleated RBCs # 0.0 /100WBC 11/08/22 00:12 D-Dimer <= 0.27 ug/mIFEU (0-0.59) 11/08/22 00:12 Sodium 139 mmol/L (136-145) 11/08/22 00:12 Potassium 4.0 mmol/L (3.5-5.1) 11/08/22 00:12 Chloride 102 mmol/L (98-107) 11/08/22 00:12 Carbon Dioxide 24 mmol/L (22-29) 11/08/22 00:12 Anion Gap 17.0 (5-19) 11/08/22 00:12 BUN 10 mg/dL (6-20) 11/08/22 00:12 Creatinine 0.5 mg/dL (0.5-0.9) 11/08/22 00:12 GFR Calculation 143.9 mL/min (90-130) H 11/08/22 00:12 Glucose 88 mg/dL (65-115) 11/08/22 00:12 Calculated Osmolality 286 mOsm/kg (285-295) 11/08/22 00:12 Calcium 9.0 mg/dL (8.5-10.5) 11/08/22 00:12 Total Bilirubin 0.2 mg/dL (0.15-1.2) 11/08/22 00:12 AST 13 U/L (0-32) 11/08/22 00:12 ALT 12 U/L (0-33) 11/08/22 00:12 Alkaline Phosphatase 85 U/L (35-105) 11/08/22 00:12 Troponin T Baseline 6 ng/L (0-10) 11/08/22 00:12 NT-Pro-B Natriuret Pep 51 pg/mL (0-125) 11/08/22 00:12 Total Protein 6.8 g/dL (6.6-8.7) 11/08/22 00:12 Albumin 4.5 g/dL (3.5-5.2) 11/08/22 00:12 Globulin 2.3 g/dL (1.3-4.6) 11/08/22 00:12 Lipase 28 U/L (13-60) 11/08/22 00:12 Discharge Plan Discharge Patient Disposition: Home Clinical Impression: Chest pain Condition: Stable Prescriptions: New Prevacid 30 mg capsule,delayed release(DR/EC) 30 mg PO DAILY Qty: 30 0RF No Action phentermine 37.5 mg capsule 37.5 mg PO DAILY 30 Days Qty: 30 0RF Rx Instructions: must administer 30 minutes before or 1-2 hours after breakfast Discharge Orders: Discharge ED (Routine); Ordered 11/08/22 Ordered By: Charli Lal Referrals: Venancio Alvarez FNP [Primary Care Provider] - 1-3 days Patient Instructions: Chest Pain (ED), Gastritis (ED) Coding Level of Care Code ED Store Cashier for Niya Giang
== END 2022-11-08 02:45 | disposition home or self-care (01) ==
PROVIDERS: Emergency Provider Emergency Medicine; PCP Registered Nurse
DX: R07.9 Chest pain, unspecified (principal)
CPT/HCPCS: 71045; 76705; 80053; 83690; 83880; 84484; 85025; 85378; 99285

== ENCOUNTER → 2023-07-26 11:40 | Outpatient (BNVA) | payer OTHER, SELFPAY | PROVIDERS: PCP Registered Nurse; Visit Provider Registered Nurse | DX: M79.10 Myalgia, unspecified site (principal); R00.0 Tachycardia, unspecified; R53.83 Other fatigue | CPT/HCPCS: 82533; 84432; 84443; 85651; 86003; 86008; 86038; 86140; 86376; 86800 ==

== ENCOUNTER 2023-08-12 15:00 | Outpatient (CLI) | payer OTHER, SELFPAY ==
[2023-08-12] MEDS: iohexol 350 mg/mL 500 mL Btl (per mL) IV (15:11)
[2023-08-12] MEDS: iohexol 350 mg/mL 500 mL Btl (per mL) PO (15:12)
--- NOTE | 2023-08-12 16:30 | CT_ITS ---
WS: [id number] CT ABDOMEN PELVIS TECHNIQUE: Contrast-enhanced CT of the abdomen and pelvis with coronal and sagittal reformatted image s. CLINICAL INFORMATION: R10.9 - Unspecified abdominal pain COMPARISON: Ultrasound 11/08/2022 and MRI 10/06/2021 DLP: 433.[address] scans at [facility] use at least one of these dose optimization techniques: automated e xposure control; mA and/or kV adjustment per patient size (includes targeted exams where dose is matc hed to clinical indication); or iterative reconstruction. FINDINGS: Mild effusion infiltration the liver. Normal spleen. Adrenal glands are normal. Normal renal parenchy mal enhancement. No hydronephrosis. Portal vein and splenic vein are patent. Cholecystectomy clips. L tova bases are well aerated. Normal pancreatic parenchymal enhancement. Adrenal glands are normal. No hydronephrosis. Small amount of free fluid in the pelvis. Tiny fat-containing umbilical hernia. Normal caliber abdomi nal aorta. Celiac and SMA are patent. Prominent uterus with heterogeneous enhancement. Thickening of the cervix. This could be further evaluated with pelvic ultrasound. Normal sigmoid colon. No evidence of high-grade small or large bowel obstruction. No evidence of acut e appendicitis. Normal lumbar spine. IMPRESSION: 1. No evidence of acute appendicitis. 2. No hydronephrosis in either kidney. No obstructing renal or ureteral calculi. 3. Small moderate free fluid in the pelvis. 4. Heterogeneously enhancing lobulated uterus. Thickening at the cervix. This could be further evalu ated with pelvic ultrasound. 5. Mild diffuse fatty filtration of the liver. Prior cholecystectomy. 6. No other suspicious findings.
== END 2023-08-12 15:01 | disposition home or self-care (01) ==
PROVIDERS: PCP Registered Nurse; Visit Provider Registered Nurse
DX: R10.9 Unspecified abdominal pain (principal); R19.7 Diarrhea, unspecified; R63.4 Abnormal weight loss
CPT/HCPCS: 74177; Q9967

== ENCOUNTER → 2023-08-31 11:30 | Outpatient (BNVA) | payer OTHER, SELFPAY | PROVIDERS: PCP Registered Nurse; Visit Provider Obstetrics & Gynecology | DX: Z12.4 Encounter for screening for malignant neoplasm of cervix (principal) | CPT/HCPCS: 87624 ==

== ENCOUNTER → 2023-09-23 15:34 | Outpatient (BNVA) | payer OTHER, SELFPAY | PROVIDERS: PCP Family Medicine; Visit Provider Obstetrics & Gynecology | DX: R10.2 Pelvic and perineal pain (principal); N83.202 Unspecified ovarian cyst, left side | CPT/HCPCS: 76830 ==

== ENCOUNTER 2023-10-04 11:23 | Outpatient (CLI) | payer OTHER, SELFPAY ==
[2023-10-04 11:56] LABS: Basophils % 0.3 %; Eosinophils # 0.1 10^3/uL (0.0-0.8); Eosinophils % 1.8 %; Hematocrit 42.6 % (36-47); Lymphocytes % 31.1 %; Mean Corpuscular HGB Conc 32.4 g/dL (30-55); Mean Corpuscular Volume 83.2 fl (85-98); Mean Platelet Volume 9.9 fL (7.4-10.4); Monocytes # 0.4 10^3/uL (0.2-0.9); Monocytes % 6.1 %; Neutrophils # 3.97 10^3/uL (1.8-7.7); Neutrophils % 60.4 %; Nucleated Red Blood Cells % 0 %; Platelet Count 303 10^3/cmm (157-399); Red Blood Count 5.12 10^6/uL (3.85-5.65); Red Cell Distribution Width 13.1 % (12.1-15.1); White Blood Count 6.57 10^3/uL (3.29-11.43)
[2023-10-04 12:24] LABS: Free T4 Free Thyroxine 1.36 ng/dL (0.82-1.77); Hepatitis C Virus Antibody Non-Reactive (Nonreactive); Thyroid Stimulating Hormone 1.28 uIU/mL (0.27-4.20)
[2023-10-04 12:42] LABS: 25 Hydroxy Vitamin D 20 ng/mL (30-100); Alanine Aminotransferase 16 U/L (0-33); Albumin Level 4.2 g/dL (3.5-5.2); Alkaline Phosphatase 85 U/L (35-105); Anion Gap 15.4 (5-19); Aspartate Amino Transferase 13 U/L (0-32); Blood Urea Nitrogen 10 mg/dL (6-20); Calcium 9.2 mg/dL (8.5-10.5); Carbon Dioxide 25 mmol/L (22-29); Chloride 102 mmol/L (98-107); Chol HDL Ratio 2.59 mg/dL (0.0-4.40); Cholesterol 179 mg/dL (0-200); Globulin 3.3 g/dL (1.3-4.6); Glucose 94 mg/dL (65-115); HDL Cholesterol 69 mg/dL (60-100); LDL Cholesterol Calculated 96 mg/dL (50-129); LDL HDL Ratio 1.39 RATIO (0.00-3.22); Osmolality Calculated 287 mOsm/kg (285-295); Potassium 3.4 mmol/L (3.5-5.1); Prolactin 4.85 ng/mL (4.8-23.3); Sodium 139 mmol/L (136-145); Total Bilirubin 0.3 mg/dL (0.15-1.2); Total Protein 7.5 g/dL (6.6-8.7); Triglycerides 69 mg/dL (0-150); Uric Acid 3.6 mg/dL (2.4-5.7)
[2023-10-04 13:18] LABS: HIV 1 & 2 Antibody Non-Reactive (Non-Reactiv); HIV 1 & 2 Antigen Non-Reactive (Non-Reactiv)
[2023-10-05 15:54] LABS: Egg White (F1) Ige <0.10 kU/L; Egg White Class 0; Immunoglobulin E 44 kU/L (<OR=114); Maize Corn Class 0; Maize/Corn (F8) Ige <0.10 kU/L; Oat (F7) Ige 0.12 kU/L; Oat Class 0/1; Pork Class 0; Potato (F35) Ige <0.10 kU/L; Potato Class 0; Rye (F5) Ige <0.10 kU/L; Rye Class 0; Soybean (F14) Ige <0.10 kU/L; Soybean Class 0; Tomato (F25) Ige <0.10 kU/L; Tomato Class 0; Wheat (F4) Ige <0.10 kU/L; Wheat Class 0
[2023-10-06 01:48] LABS: Gliadin Ab.IgG <1.0 U/mL
[2023-10-06 01:54] LABS: Tissue Transglutaminase IgA Ab <1.0 U/mL; Tissue transglutaminase Ab.IgG <1.0 U/mL
[2023-10-06 09:20] LABS: Anti-Nuclear Antibody Pattern Nuclear, Speckled; Anti-Nuclear Antibody Screen POSITIVE (NEGATIVE); Anti-Nuclear Antibody Titer 1:40 titer
[2023-10-06 10:14] LABS: Thyroglobulin AB <1 IU/mL (< or = 1)
[2023-10-06 15:14] LABS: Cat Dander (E1) Ige <0.10 kU/L; Cat Dander Class 0; Dog Dander (E5) Ige <0.10 kU/L; Dog Dander Class 0
[2023-10-06 15:25] LABS: Alternaria Alternata (M6) Ige 2.79 kU/L; Alternaria Class 2; Bermuda Class 0; Bermuda Grass (G2) Ige <0.10 kU/L; Common Ragweed (Short) (W1) Ig 1.31 kU/L; D. Farinae Class 0; Dermatophagoides Class 0; Dermatophagoides Farinae (D2) <0.10 kU/L; Dermatophagoides Pteronyssinus <0.10 kU/L; Elm (T8) Ige 0.26 kU/L; Elm Class 0/1; English Plantain (W9) Ige 0.23 kU/L; English Plantain Class 0/1; House Dust (Greer) (H1) Ige <0.10 kU/L; House Dust (Hollister- Stier) <0.10 kU/L; House Dust Class 0; Immunoglobulin E 45 kU/L (<OR=114); Johnson Grass (G10) Ige 0.14 kU/L; Johnson Grass Cl 0/1; June Grass Class 1; June Grass(Kentucky Blue) (G8) 0.39 kU/L; Lamb'S Quarters (Goose Foot) <0.10 kU/L; Lamb'S Quarters Class 0; Maple (Box Elder) (T1) Ige <0.10 kU/L; Maple Class 0; Meadow Fescue (G4) Ige 0.21 kU/L; Meadow Fescue Class 0/1; Mucor Racemosus Class 0; Oak (T7) Ige <0.10 kU/L; Oak Class 0; Orchard Grass (Cocksfoot) (G3) 0.27 kU/L; Penicillium Class 0; Penicillium Notatum (M1) Ige <0.10 kU/L; Perennial Rye Grass (G5) Ige 0.23 kU/L; Perennial Rye Grass Class 0/1; Ragweeed Class 2; Rough Marsh Elder (W16) Ige <0.10 kU/L; Rough Marsh Elder Class 0; Sweet Vernal Class 0/1; Timothy Grass Class 0/1
[2023-10-06 17:29] LABS: Immunoglobulin A 334 mg/dL (47-310)
[2023-10-06 18:10] LABS: Allergen Beef Igg 10.4 mcg/mL (<2.0); Allergen Cacao (Chocolate) Igg 2.4 mcg/mL (<2.0); Allergen Chicken Meat Igg <2.0 mcg/mL (<2.0); Allergen Orange Igg 2.3 mcg/mL (<2.0); Allergen Peanut Igg 8.9 mcg/mL (<2.0); Barley (F6) Igg 4.5 mcg/mL (<2.0); Yeast (F45) Igg 2.8 mcg/mL (<2.0)
[2023-10-06 21:19] LABS: Aspergillus Fumigatus, Igg Ab, 46.9 mg/L (<=102)
[2023-10-13 23:59] LABS: Thyroglobulin Level 11.8 ng/mL
== END 2023-10-04 11:24 | disposition home or self-care (01) ==
LOC: LAB 11:24
PROVIDERS: PCP Family Medicine; Visit Provider Family Medicine
DX: E55.9 Vitamin D deficiency, unspecified (principal); R10.9 Unspecified abdominal pain; G89.29 Other chronic pain; K90.0 Celiac disease; R76.8 Other specified abnormal immunological findings in serum; G89.4 Chronic pain syndrome; R53.82 Chronic fatigue, unspecified; Z11.59 Encounter for screening for other viral diseases; Z11.4 Encounter for screening for human immunodeficiency virus [HIV]
CPT/HCPCS: 36415; 80053; 80061; 82306; 82784; 82785; 83516; 84146; 84432; 84439; 84443; 84550; 85025; 86003; 86038; 86140; 86800; 86803; 87806

== ENCOUNTER → 2023-11-10 16:19 | Outpatient (BNVA) | payer OTHER, SELFPAY | PROVIDERS: PCP Family Medicine; Visit Provider Registered Nurse | DX: N39.0 Urinary tract infection, site not specified (principal) | CPT/HCPCS: 81000; 87086 ==

== ENCOUNTER 2023-11-15 09:45 | Outpatient (CLI) | payer OTHER, SELFPAY ==
--- NOTE | 2023-11-15 | MM_ITS ---
DIAGNOSTIC BILATERAL DIGITAL BREAST TOMOSYNTHESIS MAMMOGRAPHY WITH CAD RIGHT breast ultrasound, limited HISTORY: N63.10 - Unspecified lump in the right breast, unspecifie... COMPARISON: None available. TECHNIQUE: Bilateral craniocaudad, mediolateral oblique, and mediolateral views are submitted with tomosynthesis and SM. Spot compression RIGHT MLO. Spot compression RIGHT CC. Computer aided detection utilized. Breast composition: There are scattered areas of fibroglandular density. Marker is placed along the medial inferior RIGHT breast. There is no underlying mass or distortion identified at this site. There is no skin thickening. Ultrasound to follow. LEFT breast is negative. RIGHT breast ultrasound, limited. Ultrasound is directed RIGHT breast from 2-6 o'clock in the area of pain. There is no mass or distortion. No soft tissue thickening. IMPRESSION: BI-RADS: 2-Benign FOLLOW UP: Age 41 MTDD
== END 2023-11-15 09:46 | disposition home or self-care (01) ==
LOC: RAD 09:45
PROVIDERS: PCP Family Medicine; Visit Provider Obstetrics & Gynecology
DX: N63.12 Unspecified lump in the right breast, upper inner quadrant (principal); R92.323 Mammographic fibroglandular density, bilateral breasts
CPT/HCPCS: 76642; 77062; G0279

== ENCOUNTER → 2023-11-19 14:26 | Outpatient (BNVA) | payer OTHER, SELFPAY | PROVIDERS: PCP Family Medicine; Visit Provider Registered Nurse | DX: N39.0 Urinary tract infection, site not specified (principal) | CPT/HCPCS: 81000 ==

== ENCOUNTER 2023-12-02 17:55 | Outpatient (CLI) | payer OTHER, SELFPAY ==
--- NOTE | 2023-12-02 17:15 | CTR_ITS ---
PROCEDURE INFORMATION: Exam: CT Abdomen And Pelvis Without Contrast Exam date and time: 12/02/2023 5:57 PM Age: 33 years old Clinical indication: Abdominal pain; Generalized; Prior surgery; Surgery date: 6+ months; Surgery type: Gallbladder; Patient HX: Low pelvic pain x 3 weeks, uti's; Additional info: N20.0 - calculus of kidney, does not require auth per TECHNIQUE: Imaging protocol: Computed tomography of the abdomen and pelvis without contrast. Axial, coronal and sagittal reformatted images were created and reviewed. Radiation optimization: All CT scans at this facility use at least one of these dose optimization techniques: automated exposure control; mA and/or kV adjustment per patient size (includes targeted exams where dose is matched to clinical indication); or iterative reconstruction. COMPARISON: CT abdomen pelvis w con* [id number] 08/12/2023 4:07 PM RADIATION DOSE METRICS: Total DLP (mGy-cm): 472.24 FINDINGS: Liver: Unremarkable. Gallbladder and bile ducts: Status post cholecystectomy. No biliary ductal dilatation. Pancreas: Unremarkable. Spleen: Unremarkable. Adrenal glands: Normal. No mass. Kidneys and ureters: No mass. No radiodense calculi. No hydronephrosis. Stomach and bowel: No bowel wall thickening. No obstruction. No pneumatosis. Appendix: Normal. Intraperitoneal space: Trace nonspecific free pelvic fluid, likely physiologic. No organized fluid collection. No free air. Vasculature: Unremarkable. No aneurysm. Lymph nodes: No pathologically enlarged lymph nodes. Urinary bladder: Unremarkable as visualized. Reproductive: Unremarkable. Bones/joints: No acute osseous abnormality. Soft tissues: Tiny, fat containing umbilical hernia. CT/CT kidney stone [id number] IMPRESSION: 1. Limited noncontrast examination without CT evidence of acute intra-abdominal or pelvic pathology. 2. Additional findings, as above.
== END 2023-12-02 17:56 | disposition home or self-care (01) ==
LOC: RAD 17:55
PROVIDERS: PCP Family Medicine; Visit Provider Registered Nurse
DX: N20.0 Calculus of kidney (principal); R10.84 Generalized abdominal pain; R10.2 Pelvic and perineal pain; Z87.440 Personal history of urinary (tract) infections
CPT/HCPCS: 74176; 81000

== ENCOUNTER → 2023-12-10 11:34 | Outpatient (BNVA) | payer OTHER, SELFPAY | PROVIDERS: PCP Registered Nurse; Visit Provider Registered Nurse | DX: N20.0 Calculus of kidney (principal) | CPT/HCPCS: 81000 ==

== ENCOUNTER → 2023-12-13 16:00 | Outpatient (BNVA) | payer OTHER, SELFPAY | PROVIDERS: PCP Registered Nurse; Visit Provider Registered Nurse | DX: R10.9 Unspecified abdominal pain (principal); G89.29 Other chronic pain | CPT/HCPCS: 81000 ==

== ENCOUNTER → 2024-01-03 10:21 | Outpatient (BNVA) | payer OTHER, SELFPAY | PROVIDERS: PCP Registered Nurse; Visit Provider Obstetrics & Gynecology | DX: N93.9 Abnormal uterine and vaginal bleeding, unspecified (principal); N83.201 Unspecified ovarian cyst, right side | CPT/HCPCS: 76830 ==

== ENCOUNTER 2024-02-24 08:31 | Day surgery (SDC) | payer OTHER, SELFPAY ==
[2024-02-24] VITALS (16 sets, daily range): BP systolic 80–115; BP diastolic 45–80; PULSE 53–76; RESP 12–19; TEMP 36.3–36.6; O2SAT 100; BMI 29.2
--- NOTE | 2024-02-24 01:39 | P.HP_ITS ---
Same Day Surgery H&P Indication for Procedure/HPI DATE OF PROCEDURE: February 24, 2024 CHIEF COMPLAINT/INDICATIONFOR SURGICAL PROCEDURE: abnormal uterine bleeding PREOP DIAGNOSIS: abnormal uterine bleeding PLANNED PROCEDURE: Operation Date: 02/24/24 10:15 Proposed Procedures p Hysteroscopy, endometrial sampling, possible endometrial polypectomy(Not Appli cable) - Sameer Crenshaw MD s possible endometrial polypectomy(Not Applicable) - Sameer Crenshaw MD 33 y.o. SA1 with bleeding every two weeks now scheduled for hysteroscopy, endometrial sampling, possible endometrial polypectomy Medications/Allergies* Allergies/Adverse Reactions Allergy/AdvReac Type Severity Reaction Status Date / Time beef derived (bovine) Allergy Unknown Verified 02/23/24 11:59 gluten Allergy ADR-Gastrointestinal Verified 02/23/24 11:51 Upset Pertinent History/Comorbid Conditions* Surgical History (Updated 10/30/21 @ 07:50 by Ward Mahajan MD) H/O excision of mass (10/30/21) abdominal wall History of x1 Hx of oral surgery Social History Smoking and tobacco/nicotine status: never used tobacco/nicotine Alcohol intake: never Substance/Drug Use: never Adopted: No Caregiver/support person: No Lives independently: No Household members: spouse and children Current occupational status: employed Current occupation: [employer] Sexually active: Yes Do you think of yourself as: Straight/Heterosexual Current gender identity: Female Pertinent Exam Findings alert, oriented x 3, clear to auscultation bilaterally and regular rate & rhythm Recommendations Surgery/Procedure today Coding Level of Care Code Acute Code for Chg Fwd Time Spent (min) 20
--- NOTE | 2024-02-24 09:04 | P.ANESASSM_ITS ---
Pre-Anesthetic Assessment Height/Weight: Height 1.57 m Weight 72.575 kg Temp Pulse Resp BP Pulse Ox O2 Del Method 97.3 F L 72 18 106/69 100 Room Air 02/24/24 08:55 02/24/24 08:55 02/24/24 08:55 02/24/24 08:55 02/24/24 08:55 02/24/24 08:56 Preop Diagnosis: abnormal uterine bleeding Operation Date: 02/24/24 10:15 Proposed Procedures p Hysteroscopy, endometrial sampling, possible endometrial polypectomy(Not Applicable) - Sameer Crenshaw MD s possible endometrial polypectomy(Not Applicable) - Sameer Crenshaw MD Familial anesthetic complications: None Was Beta Delma taken within 24 hours: N/A Was Clonidine taken within 24 hours: N/A Last intake: Intake Last Liquid Date 02/23/24 Last Liquid Time 22:00 Last Solid Date 02/23/24 Last Solid Time 19:00 Social No alcohol and No tobacco Exam alert, oriented x 3, clear to auscultation bilaterally and regular rate & rhythm Airway Mallampati: Class I Dentition: full Anesthetic Plan ASA status: 1 Anesthesia: General Risk of > 500 ml blood loss (7ml/kg in children): No Medications/Allergies Home Medications Medication Instructions Recorded Confirmed Last Taken Type propranolol 10 mg tablet 10 mg PO BID 30 days #60 tabs 09/10/23 02/23/24 Unknown Rx dicyclomine 10 mg capsule 10 mg PO BID 7 days #14 caps 12/03/23 02/23/24 Unknown Rx oxybutynin chloride 10 mg 10 mg PO DAILY #30 tabs 01/10/24 02/23/24 Unknown Rx tablet,extended release 24 hr phenazopyridine 100 mg tablet 100 mg PO BID #60 tabs 01/10/24 02/23/24 Unknown Rx (Pyridium) Allergies Allergy/AdvReac Type Severity Reaction Status Date / Time beef derived (bovine) Allergy Unknown Verified 02/23/24 11:59 gluten Allergy ADR-Gastrointestinal Verified 02/23/24 11:51 Upset NSAIDS (Non-Steroidal Allergy ADR-Gastrointestinal Verified 02/24/24 09:00 Anti-Inflamma Upset [facility] Anesthesia Surgical History H/O excision of mass (10/30/21) abdominal wall History of x1 Hx of oral surgery Social History Smoking and tobacco/nicotine status: never used tobacco/nicotine Alcohol intake: never Substance/Drug Use: never Adopted: No Caregiver/support person: No Lives independently: No Household members: spouse and children Current occupational status: employed Current occupation: [employer] Sexually active: Yes Do you think of yourself as: Straight/Heterosexual Current gender identity: Female Female Reproductive History Spontaneous abortions: No Data Anesthesia Cardiac Studies: No Data to Display
--- NOTE | 2024-02-24 09:42 | W.PM.OPSUD ---
Surgery/Procedure H&P Update DATE OF PROCEDURE: February 24, 2024 DATE H&P PERFORMED: 02/24/24 H&P UPDATE INFORMATION: I have reviewed H&P completed within last 30 days, I have examined patient prior to procedure and No changes to prior documentation PREOP DIAGNOSIS: abnormal uterine bleeding PLANNED PROCEDURE: Operation Date: 02/24/24 10:15 Proposed Procedures p Hysteroscopy, endometrial sampling, possible endometrial polypectomy(Not Applicable) - Sameer Crenshaw MD s possible endometrial polypectomy(Not Applicable) - Sameer Crenshaw MD
[2024-02-24] MEDS: sodium chloride 0.9% 1,000 ML 30 ML IV (09:57)
--- NOTE | 2024-02-24 11:20 | PM.OP ---
Operative Report Date of procedure: February 24, 2024 Pre-op diagnosis: abnormal uterine bleeding Post-op diagnosis: same Post-op findings: Several small benign-appearing polyps Moderate amount of endometrial tissue Procedure done: Hysteroscopy Endometrial sampling and polypectomy with Myosure Implants: none Specimens removed/disposition: endometrial tissue Surgeon: Sameer Crenshaw MD Anesthesia: General Estimated blood loss (mL): 0 Complications: none Findings: Several small benign-appearing polyps Moderate amount of endometrial tissue Condition: stable Disposition: PACU Brief History: 33 y.o. with bleeding every two weeks Procedure: Informed consent signed. Patient was taken to the operating room. Anesthesia was induced. Patient was placed in dorsolithotomy position, prepped and draped for hysteroscopy. A bivalve speculum was placed in the vagina. The anterior lip of the cervix was grasped with a sharp-toothed tenaculum. The cervix was serially dilated with Hegar dilators. . A hysteroscope was placed into the endometrial cavity. Several small benign-appearing polyps were seen. There was moderate amount of endometrial tissue. A Myosure was then inserted and the polyps were removed. As much of the endometrium as possible was removed with the Myosure. The endometrial cavity was seen to be intact. The hysteroscope and Myosure were then removed. Endometrial tissue was sent to pathology. The sharp-toothed tenaculum was removed. There was no bleeding from the endometrial cavity or cervix. The patient was then placed supine and awakened and taken to the PACU. Postop condition: stable EBL: none Sponge and instruments counts were normal x 2 Complications: none
--- NOTE | 2024-02-25 12:40 | ANE.PACU2 ---
Inpatient post-anesthesia follow up: Airway intact: Yes Vital signs: Temperature 97.7 F Pulse Rate 64 Respiratory Rate 16 Blood Pressure 98/63 Pulse Oximetry 100 Oxygen Delivery Me thod Room Air Oxygen Flow Rate Fraction of Inspir ed Oxygen Hydration adequate: Yes Nausea and vomiting: No Pain level: 1 Mental status: Baseline
== END 2024-02-24 12:43 | disposition home or self-care (01) ==
PROVIDERS: PCP Registered Nurse; Visit Provider Obstetrics & Gynecology
PROC: 0UJD8ZZ Inspection of Uterus and Cervix, Via Natural or Artificial Opening Endoscopic (ICD-10-PCS; CPT 58555; principal; 2024-02-24 10:15)
PROC: (CPT 58558; 2024-02-24 10:15)
DX: N93.9 Abnormal uterine and vaginal bleeding, unspecified (principal)
CPT/HCPCS: 58558; 88305; J2250; J2704; J3010; J7030

== ENCOUNTER → 2024-03-09 11:29 | Outpatient (BNVA) | payer OTHER, SELFPAY | PROVIDERS: PCP Registered Nurse; Visit Provider Registered Nurse | DX: N93.9 Abnormal uterine and vaginal bleeding, unspecified (principal); F41.1 Generalized anxiety disorder; F40.01 Agoraphobia with panic disorder; E61.1 Iron deficiency | CPT/HCPCS: 83540; 85025 ==

== ENCOUNTER 2024-07-03 13:55 | Outpatient (CLI) | payer OTHER, SELFPAY ==
--- NOTE | 2024-07-03 14:00 | US_ITS ---
WS: [id number] RENAL ULTRASOUND URINARY BLADDER ULTRASOUND HISTORY: R39.14 - Feeling of incomplete bladder emptying COMPARISON: 10/08/2012 TECHNIQUE: 2-D and color Doppler imaging of the kidney submitted. Right kidney: 11.4 cm x 4.9 cm x 6.0 cm. Normal echogenicity with no hydronephrosis or mass. Left kidney: 11.1 cm x 3.7 cm x 4.5 cm. Normal echogenicity with no hydronephrosis or mass. Aorta: Normal. Urinary Bladder: Minimally distended bladder. Bladder was not distended during the examination. Prevoid volume 19 mL. Postvoid volume 3 mL. US/US renal BI with PV bladder IMPRESSION: 1. No renal obstruction or mass. 2. No significant post void residual in the urinary bladder.
== END 2024-07-03 13:56 | disposition home or self-care (01) ==
LOC: RAD 13:56
PROVIDERS: PCP Registered Nurse; Visit Provider Registered Nurse
DX: R33.9 Retention of urine, unspecified (principal); R39.14 Feeling of incomplete bladder emptying
CPT/HCPCS: 76770; 76857